=== PATIENT | female | born 1975 | race Caucasian/White ===

== ENCOUNTER → 2016-05-30 | Outpatient (CLI) | payer OTHER ==
--- NOTE | 2016-06-04 09:34 | MM ---
Reason for exam: screening (asymptomatic). History: Family history of breast cancer in maternal grandmother at age 60. Physical Findings: A clinical breast exam by your physician is recommended on an annual basis and results should be correlated with mammographic findings. MG Screening Mammo w CAD Bilateral CC and MLO view(s) were taken. Prior study comparison: March 05, 2011, mammogram, performed at [facility]. The breast tissue is heterogeneously dense. This may lower the sensitivity of mammography. No significant changes when compared with prior studies. ASSESSMENT: Benign, BI-RAD 2 RECOMMENDATION: Routine screening mammogram of both breasts in 1 year.
== END | disposition home or self-care (01) ==
LOC: RADMAMWWP 08:19
PROVIDERS: ATTEND Obstetrics & Gynecology
DX: Z12.31 Encounter for screening mammogram for malignant neoplasm of breast (principal); Z80.3 Family history of malignant neoplasm of breast

== ENCOUNTER → 2017-05-22 | Outpatient (CLI) | payer BC ==
--- NOTE | 2017-05-23 10:17 | NM ---
EXAMINATION TYPE: NM thyroid image w uptake DATE OF EXAM: 05/23/2017 COMPARISON: NONE HISTORY: Thyrotoxicosis TECHNIQUE: Thyroid iodine uptake is calculated and images performed after the oral administration of 300 uCi I-123 uCi 1-123 Capsule. FINDINGS: There is normal distribution of activity throughout the gland. The 4 hour iodine uptake is calculated at 76% (normal range 8-14%). The 24-hour iodine uptake is calculated at 84% (normal range 15-35%). IMPRESSION: Correlate for hyperthyroidism.
== END | disposition home or self-care (01) ==
LOC: RADNMMAIN 08:42
PROVIDERS: ATTEND Internal Medicine Endocrinology, Diabetes & Metabolism
DX: E05.00 Thyrotoxicosis with diffuse goiter without thyrotoxic crisis or storm (principal)
CPT/HCPCS: 78014; A9516

== ENCOUNTER → 2017-12-19 | Outpatient (CLI) | payer BC ==
--- NOTE | 2017-12-20 12:21 | MM ---
Reason for exam: screening (asymptomatic). Last mammogram was performed 1 year and 7 months ago. History: Family history of breast cancer in maternal grandmother at age 60. Physical Findings: A clinical breast exam by your physician is recommended on an annual basis and results should be correlated with mammographic findings. MG 3D Screening Mammo W/Cad Bilateral CC and MLO view(s) were taken. Prior study comparison: May 30, 2016, bilateral MG screening mammo w CAD. March 05, 2011, mammogram, performed at [facility]. The breast tissue is heterogeneously dense. This may lower the sensitivity of mammography. No suspicious abnormality. No significant changes when compared with prior studies. ASSESSMENT: Negative, BI-RAD 1 RECOMMENDATION: Routine screening mammogram of both breasts in 1 year.
== END ==
LOC: RADMAMWWP 14:46
PROVIDERS: ATTEND Obstetrics & Gynecology
DX: Z12.31 Encounter for screening mammogram for malignant neoplasm of breast (principal); Z80.3 Family history of malignant neoplasm of breast
CPT/HCPCS: 77063; 77067

== ENCOUNTER → 2018-11-14 | Outpatient (CLI) | payer BC ==
[2018-11-14 19:18] LABS: T4, Free (Free Thyroxine) 1.4 ng/dL (0.80-1.80)
[2018-11-14 20:28] LABS: African American GFR (CKD) 162.5 (60.0-200.0); Albumin 4.3 g/dL (3.80-4.90); Albumin/Globulin Ratio 2.05 (1.60-3.17); Anion Gap 10.3 mmol/L (4.00-12.00); Calcium 9.3 mg/dL (8.7-10.3); Carbon Dioxide 28.7 mmol/L (21.6-31.8); Globulin 2.1 g/dL (1.6-3.3); Potassium 3.8 mmol/L (3.5-5.5); Total Bilirubin 0.3 mg/dL (0.2-1.2); Total Protein 6.4 g/dL (6.2-8.2)
== END | disposition home or self-care (01) ==
LOC: LABWHC1 13:43
PROVIDERS: ATTEND Nurse Practitioner Adult Health
DX: E03.9 Hypothyroidism, unspecified (principal); R74.8 Abnormal levels of other serum enzymes
CPT/HCPCS: 36415; 80053; 82140; 84439; 84443; 84481

== ENCOUNTER 2019-10-11 12:04 | Emergency (ER) | payer BC ==
[2019-10-11 12:13] VITALS: TEMP 97.8
[2019-10-11] MEDS ORDERED: methylPREDNISolone SOD SUCCI 125 MG/2 ML VIAL IV STA (12:25)
[2019-10-11] MEDS ORDERED: IPRATROPIUM-ALBUTEROL 3 ML NEB INHALATION STA (12:25)
[2019-10-11] MEDS ORDERED: SODIUM CHLORIDE 0.9% 500 ML 500 ML IV STA ×2 (12:25→13:01)
--- NOTE | 2019-10-11 12:42 | ED ---
SOB HPI - General Chief Complaint: Shortness of Breath Stated Complaint: poss pneumonia Time Seen by Provider: 10/11/19 12:15 Source: patient Mode of arrival: ambulatory Limitations: no limitations - History of Present Illness Initial Comments: Patient is a 44-year-old female, history of muscular dystrophy, presenting to the emergency Department with complaints of shortness of breath and a cough for the past week. Patient states she did see Dr. Lamar 3 days ago and was treated for bronchitis with prednisone as well as Levaquin. Patient states she started the medications 2 days ago and feels no improvement. she believes she may have pneumonia and wanted to be seen in the ER. She did have a normal chest x-ray 3 days ago.Patient states she is short of breath with just cutting up apples. She states she is having a thick cough as well, and having some nausea, low appetite. She denies any vomiting, abdominal pain. She states she did have fevers for the first 2 days of her symptoms and was tested for Covid however that was negative. Patient has not had any fever since. She states she does use BiPAP at night time and states she has been using occasionally during the day just for improvement of shortness of breath. She denies any chest pains. She denies history of blood clots. She has no further complaints at this time. Upon arrival to the ER, patient is tachycardia at 116, rest of vitals are normal. - Related Data Home Medications Medication Instructions Recorded Confirmed Lisinopril [Prinivil] 5 mg PO HS 11/02/14 10/12/15 Albuterol Inhaler [Ventolin Hfa 1 puff INHALATION RT-QID PRN 10/11/19 10/11/19 Inhaler] Albuterol Nebulized [Ventolin 2.5 mg INHALATION TID PRN 10/11/19 10/11/19 Nebulized] Escitalopram [Lexapro] 20 mg PO HS 10/11/19 10/11/19 Fluticasone Nasal [place] [Flonase 1 spray EA NOSTRIL DAILY 10/11/19 10/11/19 Nasal [place]] Levothyroxine Sodium 100 mcg PO DAILY 10/11/19 10/11/19 Varenicline [Chantix Continuing 1 mg PO BID 10/11/19 10/11/19 Pack] levoFLOXacin 500 mg PO DAILY 10/11/19 10/11/19 predniSONE See Taper PO DAILY 10/11/19 10/11/19 Previous Rx's Medication Instructions Recorded Ipratropium Nebulized [Atrovent 0.5 mg INHALATION Q6HR PRN #10 neb 10/11/19 Nebulized 0.2 MG/ML] Allergies Allergy/AdvReac Type Severity Reaction Status Date / Time butorphanol tartrate Allergy Unknown Verified 10/11/19 13:56 [From Stadol] hydrocodone Allergy Anaphylaxis Verified 10/11/19 13:56 Penicillins Allergy Unknown Verified 10/11/19 13:56 Childhood Sulfa (Sulfonamide Allergy Rash/Hives Verified 10/11/19 13:56 Antibiotics) Review of Systems ROS Statement: Those systems with pertinent positive or pertinent negative responses have been documented in the HPI. ROS Other: All systems not noted in ROS Statement are negative. Past Medical History Past Medical History: Hyperlipidemia, Hypertension, Liver Disease, Musculoskeletal Disorder, Thyroid Disorder Additional Past Medical History / Comment(s): LIMBGIRDLE MUSCULAR DYSTROPHY (PT IS ABLE TO WALK, BUT IF SHE FALLS OR LAYS FLAT SHE WILL NEED ASSISTANCE GETTING UP). LIVER ENYMES ARE ELEVATED.. migraines, hashimotos, History of Any Multi-Drug Resistant Organisms: None Reported Past Surgical History: Cholecystectomy, Uterine Ablation Additional Past Surgical History / Comment(s): surgery for UPJ obstruction Past Anesthesia/Blood Transfusion Reactions: Motion Sickness, Postoperative Nausea & Vomiting (PONV) Past Psychological History: Anxiety, Depression Smoking Status: Former smoker Past Alcohol Use History: None Reported Past Drug Use History: None Reported - Past Family History Father Family Medical History: No Reported History Mother Family Medical History: CVA/TIA General Exam - General Exam Comments Initial Comments: GENERAL: Patient is well-developed and well-nourished. Patient is nontoxic and in no acute distress. HEAD: Atraumatic, normocephalic. EYES: Pupils equal round and reactive to light, extraocular movements intact, sclera anicteric, conjunctiva are normal. Eyelids were unremarkable. ENT: TMs normal, nares patent, oropharynx clear without exudates. Moist mucous membranes. NECK: Normal range of motion, supple without lymphadenopathy or JVD. LUNGS: Unlabored respirations. scattered wheezes throughout, no rhonchi or rales. HEART: tachycardia rate and rhythm without murmurs, rubs or gallops. ABDOMEN: Soft, nontender, normoactive bowel sounds. No guarding, no rebound. No masses appreciated. : Deferred MUSCULOSKELETAL: extremities had decreased strength secondary to muscular dystrophy. No pain with palpation. No pitting or edema. No clubbing or cyanosis. NEUROLOGICAL: Patient is alert and oriented x 3. Motor and sensory are also intact. Cranial nerves II through XII grossly intact. Symmetrical smile. Normal speech. PSYCH: Normal mood, normal affect. SKIN: Warm, Dry, normal turgor, no rashes or lesions noted. Limitations: no limitations Course Vital Signs 10/11/19 10/11/19 10/11/19 12:09 12:57 13:10 Temperature 97.8 F Pulse Rate 116 H 108 H 103 H Respiratory 24 Rate Blood Pressure 126/89 O2 Sat by Pulse 99 Oximetry Medical Decision Making - Medical Decision Making patient is a 44-year-old female, with history of muscle dystrophy, presenting with shortness of breath is increasing over the past week. She did see Dr. Lamar and was treated for bronchitis with Levaquin and prednisone which she started 2 days ago. Patient was tachycardia upon arrival, rest of vital signs are normal. She does have some scattered wheezes on exam. wheezes did improve after breathing treatment. Chest x-ray looks similar to previous one, no signs of acute process. Laboratory shows a mild leukocytosis, most likely related to current steroid prescription, patient did have a lactic acid of 3.2. I do give patient 1 L fluids as well as a dose of [place] drawl. She does report improvement in her symptoms. Her vital signs remained stable. Patient is stable for discharge. I recommended continuing with oral steroids as well as Levaquin as prescribed. I will give patient a few viles of ipratropium bromide to add to her albuterol treatment. I also recommend following up with Dr. Rasmussen symptoms not improve within 3 days. Patient is agreement this plan of care. She will also continue with either down some or Mucinex for cough and congestion. Return parameters were discussed with the patient and she verbalized understanding. Ca se discussed with Dr. Denis. - Lab Data Result diagrams: 10/11/19 12:40 10/11/19 12:40 Lab Results 10/11/19 10/11/19 10/11/19 Range/Units 12:40 12:40 12:40 WBC 12.6 H (3.8-10.6) k/uL RBC 5.00 (3.80-5.40) m/uL Hgb 14.5 (11.4-16.0) gm/dL Hct 44.8 (34.0-46.0) % MCV 89.5 (80.0-100.0) fL MCH 29.0 (25.0-35.0) pg MCHC 32.4 (31.0-37.0) g/dL RDW 13.2 (11.5-15.5) % Plt Count 360 (150-450) k/uL Neutrophils % 69 % Lymphocytes % 22 % Monocytes % 5 % Eosinophils % 3 % Basophils % 1 % Neutrophils # 8.7 H (1.3-7.7) k/uL Lymphocytes # 2.8 (1.0-4.8) k/uL Monocytes # 0.6 (0-1.0) k/uL Eosinophils # 0.3 (0-0.7) k/uL Basophils # 0.1 (0-0.2) k/uL PT 9.5 (9.0-12.0) sec INR 0.9 (<1.2) APTT 23.4 (22.0-30.0) sec D-Dimer 0.24 (<0.60) mg/L FEU Sodium 137 (137-145) mmol/L Potassium 3.3 L (3.5-5.1) mmol/L Chloride 101 (98-107) mmol/L Carbon Dioxide 25 (22-30) mmol/L Anion Gap 11 mmol/L BUN 12 (7-17) mg/dL Creatinine 0.22 L (0.52-1.04) mg/dL Est GFR (CKD-EPI)AfAm >90 (>60 ml/min/1.73 sqM) Est GFR (CKD-EPI)NonAf >90 (>60 ml/min/1.73 sqM) Glucose 150 H (74-99) mg/dL Plasma Lactic Acid Alfonzo (0.7-2.0) mmol/L Calcium 9.0 (8.4-10.2) mg/dL Total Bilirubin 0.4 (0.2-1.3) mg/dL AST 74 H (14-36) U/L ALT 76 H (4-34) U/L Alkaline Phosphatase 84 (38-126) U/L Total Protein 6.8 (6.3-8.2) g/dL Albumin 4.1 (3.5-5.0) g/dL 10/11/19 Range/Units 12:40 WBC (3.8-10.6) k/uL RBC (3.80-5.40) m/uL Hgb (11.4-16.0) gm/dL Hct (34.0-46.0) % MCV (80.0-100.0) fL MCH (25.0-35.0) pg MCHC (31.0-37.0) g/dL RDW (11.5-15.5) % Plt Count (150-450) k/uL Neutrophils % % Lymphocytes % % Monocytes % % Eosinophils % % Basophils % % Neutrophils # (1.3-7.7) k/uL Lymphocytes # (1.0-4.8) k/uL Monocytes # (0-1.0) k/uL Eosinophils # (0-0.7) k/uL Basophils # (0-0.2) k/uL PT (9.0-12.0) sec INR (<1.2) APTT (22.0-30.0) sec D-Dimer (<0.60) mg/L FEU Sodium (137-145) mmol/L Potassium (3.5-5.1) mmol/L Chloride (98-107) mmol/L Carbon Dioxide (22-30) mmol/L Anion Gap mmol/L BUN (7-17) mg/dL Creatinine (0.52-1.04) mg/dL Est GFR (CKD-EPI)AfAm (>60 ml/min/1.73 sqM) Est GFR (CKD-EPI)NonAf (>60 ml/min/1.73 sqM) Glucose (74-99) mg/dL Plasma Lactic Acid Alfonzo 3.2 H* (0.7-2.0) mmol/L Calcium (8.4-10.2) mg/dL Total Bilirubin (0.2-1.3) mg/dL AST (14-36) U/L ALT (4-34) U/L Alkaline Phosphatase (38-126) U/L Total Protein (6.3-8.2) g/dL Albumin (3.5-5.0) g/dL Disposition Clinical Impression: Cough, Dyspnea, Bronchitis Disposition: HOME SELF-CARE Condition: Stable Instructions (If sedation given, give patient instructions): Acute Bronchitis (ED) Additional Instructions: Please return to the Emergency Department if symptoms worsen or any other concerns. Continue with already prescribed oral steroids as well as antibiotics. May add and [place] or Mucinex for cough and congestion. May also add bromide 2-year-old albuterol for breathing treatments to use as needed for wheezing and shortness of breath. Follow-up with Dr. Lamar if symptoms persist after 3-4 days. Continue to drink lots of water. Prescriptions: Ipratropium Nebulized [Atrovent Nebulized 0.2 MG/ML] 0.5 mg INHALATION Q6HR PRN #10 neb PRN Reason: Dyspnea Is patient prescribed a controlled substance at d/c from ED?: No Referrals: Ray Jaquez MD [Primary Care Provider] - 1-2 days
[2019-10-11 12:50] LABS: Basophils # (A) 0.1 k/uL (0-0.2); Basophils % (A) 1 %; Eosinophils # (A) 0.3 k/uL (0-0.7); Eosinophils % (A) 3 %; HCT 44.8 % (34.0-46.0); HGB 14.5 gm/dL (11.4-16.0); Lymphocytes # (A) 2.8 k/uL (1.0-4.8); Lymphocytes % (A) 22 %; MCHC 32.4 g/dL (31.0-37.0); MCV 89.5 fL (80.0-100.0); Mean Platelet Volume 6.8; Monocytes # (A) 0.6 k/uL (0-1.0); Monocytes % (A) 5 %; Neutrophils # (A) 8.7 k/uL (1.3-7.7); Neutrophils % (A) 69 %; Platelet Count 360 k/uL (150-450); RDW 13.2 % (11.5-15.5); WBC 12.6 k/uL (3.8-10.6)
[2019-10-11 12:59] LABS: ALT 76 U/L (4-34); AST 74 U/L (14-36); African American GFR (CKD) >90 (>60 ml/min/1.73 sqM); Albumin 4.1 g/dL (3.5-5.0); Alkaline Phosphatase 84 U/L (38-126); Anion Gap 11 mmol/L; Blood Urea Nitrogen 12 mg/dL (7-17); Carbon Dioxide 25 mmol/L (22-30); Chloride 101 mmol/L (98-107); Glucose 150 mg/dL (74-99); Non-African American GFR(CKD) >90 (>60 ml/min/1.73 sqM); Potassium 3.3 mmol/L (3.5-5.1); Sodium 137 mmol/L (137-145); Total Bilirubin 0.4 mg/dL (0.2-1.3); Total Protein 6.8 g/dL (6.3-8.2)
[2019-10-11 13:04] LABS: D-Dimer 0.24 mg/L FEU (<0.60); INR 0.9 (<1.2); Partial Thromboplastin Time 23.4 sec (22.0-30.0); Prothrombin Time 9.5 sec (9.0-12.0)
--- NOTE | 2019-10-11 13:35 | XR ---
EXAMINATION TYPE: XR chest 2V DATE OF EXAM: 10/11/2019 COMPARISON: Chest x-ray October 08, 2019. HISTORY: Difficulty in breathing. TECHNIQUE: Frontal and lateral views of the chest are obtained. FINDINGS: Low lung volumes are redemonstrated. There is no focal air space opacity, pleural effusion , or pneumothorax seen. The cardiac silhouette size is stable and within normal limits. The osseou s structures are intact. IMPRESSION: Low lung volumes without new suspicious acute pulmonary process.
[2019-10-11 14:17] VITALS: BP 129/92; PULSE 94; RESP 18
== END 2019-10-11 14:25 | disposition home or self-care (01) ==
LOC: EC 12:04
DX: J40 Bronchitis, not specified as acute or chronic (principal); I10 Essential (primary) hypertension; R00.0 Tachycardia, unspecified; D72.829 Elevated white blood cell count, unspecified; F41.9 Anxiety disorder, unspecified; E06.3 Autoimmune thyroiditis; F32.9 Major depressive disorder, single episode, unspecified; Z79.51 Long term (current) use of inhaled steroids; Z79.890 Hormone replacement therapy; Z79.899 Other long term (current) drug therapy; Z88.0 Allergy status to penicillin; Z88.2 Allergy status to sulfonamides; Z88.5 Allergy status to narcotic agent; Z87.891 Personal history of nicotine dependence
CPT/HCPCS: 36415; 94640; 85379; 80053; 83605; 85025; 85610; 85730; 87040; 71046; 99285; 96374; 96361; J2930

== ENCOUNTER 2019-10-13 13:18 | Emergency (ER) | payer BC ==
[2019-10-13] MEDS ORDERED: IPRATROPIUM-ALBUTEROL 3 ML NEB INHALATION STA (13:49)
[2019-10-13] MEDS ORDERED: SODIUM CHLORIDE 0.9% 1,000 ML IV STA ×2 (13:49)
--- NOTE | 2019-10-13 13:55 | ED ---
URI HPI - General Chief Complaint: Upper Respiratory Infection Stated Complaint: Chest Pain Time Seen by Provider: 10/13/19 13:36 Source: patient, RN notes reviewed, old records reviewed Mode of arrival: wheelchair Limitations: no limitations - History of Present Illness Initial Comments: Patient is a 44-year-old female who presents emergency department today after being treated for bronchitis with prednisone and Levaquin from Dr. Lamar's office. Patient states that today she complained of some chest pressure and cough making it worse. She states she is a she's been feeling SOMEWHAT dizzy. She states it feels that her heart will race from time to time. Patient states that she's had no recorded fevers or chills. She was tested for Covid a pproximately 10 days ago and at that time it was negative. - Related Data Home Medications Medication Instructions Recorded Confirmed Lisinopril [Prinivil] 10 mg PO HS 11/02/14 10/11/19 Albuterol Inhaler [Ventolin Hfa 1 puff INHALATION RT-QID PRN 10/11/19 10/11/19 Inhaler] Albuterol Nebulized [Ventolin 2.5 mg INHALATION TID PRN 10/11/19 10/11/19 Nebulized] Escitalopram [Lexapro] 20 mg PO HS 10/11/19 10/11/19 Fluticasone Nasal [place] [Flonase 1 spray EA NOSTRIL DAILY 10/11/19 10/11/19 Nasal [place]] Levothyroxine Sodium 100 mcg PO DAILY 10/11/19 10/11/19 Varenicline [Chantix Continuing 1 mg PO BID 10/11/19 10/11/19 Pack] levoFLOXacin 500 mg PO DAILY 10/11/19 10/11/19 predniSONE See Taper PO DAILY 10/11/19 10/11/19 Previous Rx's Medication Instructions Recorded Ipratropium Nebulized [Atrovent 0.5 mg INHALATION Q6HR PRN #10 neb 10/11/19 Nebulized 0.2 MG/ML] Allergies Allergy/AdvReac Type Severity Reaction Status Date / Time butorphanol tartrate Allergy Unknown Verified 10/11/19 13:56 [From Stadol] hydrocodone Allergy Anaphylaxis Verified 10/11/19 13:56 Penicillins Allergy Unknown Verified 10/11/19 13:56 Childhood Sulfa (Sulfonamide Allergy Rash/Hives Verified 10/11/19 13:56 Antibiotics) Review of Systems ROS Statement: Those systems with pertinent positive or pertinent negative responses have been documented in the HPI. ROS Other: All systems not noted in ROS Statement are negative. Past Medical History Past Medical History: Hyperlipidemia, Hypertension, Liver Disease, Musculoskeletal Disorder, Thyroid Disorder Additional Past Medical History / Comment(s): LIMBGIRDLE MUSCULAR DYSTROPHY (PT IS ABLE TO WALK, BUT IF SHE FALLS OR LAYS FLAT SHE WILL NEED ASSISTANCE GETTING UP). LIVER ENYMES ARE ELEVATED.. migraines, hashimotos, History of Any Multi-Drug Resistant Organisms: None Reported Past Surgical History: Cholecystectomy, Uterine Ablation Additional Past Surgical History / Comment(s): surgery for UPJ obstruction Past Anesthesia/Blood Transfusion Reactions: Motion Sickness, Postoperative Nausea & Vomiting (PONV) Past Psychological History: Anxiety, Depression Smoking Status: Former smoker Past Alcohol Use History: None Reported Past Drug Use History: None Reported - Past Family History Father Family Medical History: No Reported History Mother Family Medical History: CVA/TIA General Exam - General Exam Comments Initial Comments: 44-year-old female. Alert and oriented 3. No significant distress. Limitations: no limitations General appearance: alert, in no apparent distress Head exam: Present: atraumatic, normocephalic, normal inspection Eye exam: Present: normal appearance, PERRL, EOMI. Absent: scleral icterus, conjunctival injection, periorbital swelling ENT exam: Present: normal exam, mucous membranes moist Neck exam: Present: normal inspection. Absent: tenderness, meningismus, lymphadenopathy Respiratory exam: Present: normal lung sounds bilaterally. Absent: respiratory distress, wheezes, rales, rhonchi, stridor Cardiovascular Exam: Present: regular rate, normal rhythm, normal heart sounds. Absent: systolic murmur, diastolic murmur, rubs, gallop, clicks GI/Abdominal exam: Present: soft, normal bowel sounds. Absent: distended, tenderness, guarding, rebound, rigid Extremities exam: Present: normal inspection, full ROM, normal capillary refill. Absent: tenderness, pedal edema, joint swelling, calf tenderness Back exam: Present: normal inspection Neurological exam: Present: alert, oriented X3, CN II-XII intact Psychiatric exam: Present: normal affect, normal mood Course Vital Signs 10/13/19 10/13/19 10/13/19 13:19 14:17 14:27 Temperature 98.4 F Pulse Rate 79 84 91 Respiratory 18 Rate Blood Pressure 131/87 O2 Sat by Pulse 97 Oximetry 10/13/19 10/13/19 14:40 16:11 Temperature 97.9 F Pulse Rate 85 70 Respiratory 18 16 Rate Blood Pressure 128/83 107/67 O2 Sat by Pulse 97 96 Oximetry Medical Decision Making - Medical Decision Making 44 year old female, no distress. Patient has been treated for bronchitis with antibiotic and steroids. She is on a tapering dose of the steroid. Do believe patient's symptoms of heart racing and feeling off is probably related to steroid use. Her labs reviewed and unremarkable including a negative d-dimer. Chest x-ray is improving. She was feeling better after receiving DuoNeb treatment. Discussed at this time likely side effect from the steroids and advised following up with neurology and PCP. She appears clinically well. Patient is agreeable treatment plan will comply. - Lab Data Result diagrams: 10/13/19 13:53 10/13/19 13:53 Lab Results 10/13/19 10/13/19 10/13/19 Range/Units 13:53 13:53 13:53 WBC 13.4 H (3.8-10.6) k/uL RBC 4.85 (3.80-5.40) m/uL Hgb 14.0 (11.4-16.0) gm/dL Hct 43.8 (34.0-46.0) % MCV 90.4 (80.0-100.0) fL MCH 28.8 (25.0-35.0) pg MCHC 31.9 (31.0-37.0) g/dL RDW 13.3 (11.5-15.5) % Plt Count 358 (150-450) k/uL Neutrophils % 72 % Lymphocytes % 19 % Monocytes % 6 % Eosinophils % 1 % Basophils % 1 % Neutrophils # 9.6 H (1.3-7.7) k/uL Lymphocytes # 2.6 (1.0-4.8) k/uL Monocytes # 0.8 (0-1.0) k/uL Eosinophils # 0.1 (0-0.7) k/uL Basophils # 0.1 (0-0.2) k/uL PT 9.7 (9.0-12.0) sec INR 0.9 (<1.2) APTT 24.9 (22.0-30.0) sec D-Dimer 0.22 (<0.60) mg/L FEU Sodium 136 L (137-145) mmol/L Potassium 3.7 (3.5-5.1) mmol/L Chloride 97 L (98-107) mmol/L Carbon Dioxide 32 H (22-30) mmol/L Anion Gap 7 mmol/L BUN 12 (7-17) mg/dL Creatinine 0.27 L (0.52-1.04) mg/dL Est GFR (CKD-EPI)AfAm >90 (>60 ml/min/1.73 sqM) Est GFR (CKD-EPI)NonAf >90 (>60 ml/min/1.73 sqM) Glucose 96 (74-99) mg/dL Lactic Ac Sepsis Rflx Plasma Lactic Acid Alfonzo (0.7-2.0) mmol/L Calcium 8.7 (8.4-10.2) mg/dL Magnesium 1.9 (1.6-2.3) mg/dL Total Bilirubin 0.5 (0.2-1.3) mg/dL AST 52 H (14-36) U/L ALT 71 H (4-34) U/L Alkaline Phosphatase 67 (38-126) U/L Troponin I (0.000-0.034) ng/mL Total Protein 6.6 (6.3-8.2) g/dL Albumin 3.9 (3.5-5.0) g/dL 10/13/19 10/13/19 10/13/19 Range/Units 13:53 13:53 15:44 WBC (3.8-10.6) k/uL RBC (3.80-5.40) m/uL Hgb (11.4-16.0) gm/dL Hct (34.0-46.0) % MCV (80.0-100.0) fL MCH (25.0-35.0) pg MCHC (31.0-37.0) g/dL RDW (11.5-15.5) % Plt Count (150-450) k/uL Neutrophils % % Lymphocytes % % Monocytes % % Eosinophils % % Basophils % % Neutrophils # (1.3-7.7) k/uL Lymphocytes # (1.0-4.8) k/uL Monocytes # (0-1.0) k/uL Eosinophils # (0-0.7) k/uL Basophils # (0-0.2) k/uL PT (9.0-12.0) sec INR (<1.2) APTT (22.0-30.0) sec D-Dimer (<0.60) mg/L FEU Sodium (137-145) mmol/L Potassium (3.5-5.1) mmol/L Chloride (98-107) mmol/L Carbon Dioxide (22-30) mmol/L Anion Gap mmol/L BUN (7-17) mg/dL Creatinine (0.52-1.04) mg/dL Est GFR (CKD-EPI)AfAm (>60 ml/min/1.73 sqM) Est GFR (CKD-EPI)NonAf (>60 ml/min/1.73 sqM) Glucose (74-99) mg/dL Lactic Ac Sepsis Rflx Y Plasma Lactic Acid Alfonzo 2.7 H* (0.7-2.0) mmol/L Calcium (8.4-10.2) mg/dL Magnesium (1.6-2.3) mg/dL Total Bilirubin (0.2-1.3) mg/dL AST (14-36) U/L ALT (4-34) U/L Alkaline Phosphatase (38-126) U/L Troponin I <0.012 (0.000-0.034) ng/mL Total Protein (6.3-8.2) g/dL Albumin (3.5-5.0) g/dL 10/13/19 13:55 EKG performed at 1341 shows normal sinus rhythm normal EKG. Ventricular rate 84 bpm. AK interval is 144 ms. QRS duration is 92 ms. QT QTc is 400/472 ms. - Radiology Data Radiology results: report reviewed Chest x-ray shows no pericardial vomiting process. Disposition Clinical Impression: Bronchitis Disposition: HOME SELF-CARE Condition: Good Instructions (If sedation given, give patient instructions): Upper Respiratory Infection (ED) Additional Instructions: Continue the steroids and antibiotics. Use inhalers and breathing treatment. Follow-up with your PCP. Return to ED if any alarming signs or symptoms occur. Is patient prescribed a controlled substance at d/c from ED?: No Referrals: Ray Jaquez MD [Primary Care Provider] - 1-2 days Time of Disposition: 15:58
--- NOTE | 2019-10-13 14:24 | XR ---
EXAMINATION TYPE: XR chest 2V DATE OF EXAM: 10/13/2019 CLINICAL HISTORY: Difficulty breathing. Chest pain, shortness of breath. Bronchitis. TECHNIQUE: Frontal and lateral views of the chest are obtained. COMPARISON: Chest radiograph 10/11/2019 FINDINGS: Low lung volumes. The cardiomediastinal silhouette is within normal limits for size. Pulmon rhina vasculature is normal. There is no focal air space opacity, pleural effusion, or pneumothorax see n. The osseous structures are intact. IMPRESSION: No acute cardiopulmonary process.
[2019-10-13 14:26] LABS: Basophils # (A) 0.1 k/uL (0-0.2); Basophils % (A) 1 %; Eosinophils # (A) 0.1 k/uL (0-0.7); Eosinophils % (A) 1 %; HCT 43.8 % (34.0-46.0); Lymphocytes # (A) 2.6 k/uL (1.0-4.8); Lymphocytes % (A) 19 %; MCH 28.8 pg (25.0-35.0); MCHC 31.9 g/dL (31.0-37.0); MCV 90.4 fL (80.0-100.0); Mean Platelet Volume 7.1; Monocytes # (A) 0.8 k/uL (0-1.0); Monocytes % (A) 6 %; Neutrophils # (A) 9.6 k/uL (1.3-7.7); Neutrophils % (A) 72 %; Platelet Count 358 k/uL (150-450); RBC 4.85 m/uL (3.80-5.40); RDW 13.3 % (11.5-15.5); WBC 13.4 k/uL (3.8-10.6)
[2019-10-13 14:34] LABS: ALT 71 U/L (4-34); AST 52 U/L (14-36); African American GFR (CKD) >90 (>60 ml/min/1.73 sqM); Albumin 3.9 g/dL (3.5-5.0); Alkaline Phosphatase 67 U/L (38-126); Anion Gap 7 mmol/L; Blood Urea Nitrogen 12 mg/dL (7-17); Calcium 8.7 mg/dL (8.4-10.2); Carbon Dioxide 32 mmol/L (22-30); Chloride 97 mmol/L (98-107); Glucose 96 mg/dL (74-99); Magnesium 1.9 mg/dL (1.6-2.3); Non-African American GFR(CKD) >90 (>60 ml/min/1.73 sqM); Potassium 3.7 mmol/L (3.5-5.1); Sodium 136 mmol/L (137-145); Total Bilirubin 0.5 mg/dL (0.2-1.3); Total Protein 6.6 g/dL (6.3-8.2)
[2019-10-13 14:40] LABS: D-Dimer 0.22 mg/L FEU (<0.60); INR 0.9 (<1.2); Partial Thromboplastin Time 24.9 sec (22.0-30.0); Prothrombin Time 9.7 sec (9.0-12.0)
[2019-10-13 16:12] VITALS: BP 107/67; PULSE 70; RESP 16; TEMP 97.9
== END 2019-10-13 16:16 | disposition home or self-care (01) ==
LOC: EC 13:18
DX: J40 Bronchitis, not specified as acute or chronic (principal); I10 Essential (primary) hypertension; E07.9 Disorder of thyroid, unspecified; F41.9 Anxiety disorder, unspecified; F32.9 Major depressive disorder, single episode, unspecified; Z79.899 Other long term (current) drug therapy; Z79.51 Long term (current) use of inhaled steroids; Z88.0 Allergy status to penicillin; Z88.2 Allergy status to sulfonamides; Z88.5 Allergy status to narcotic agent; Z88.8 Allergy status to other drugs, medicaments and biological substances; Z87.891 Personal history of nicotine dependence
CPT/HCPCS: 36415; 71046; 80053; 83605; 83735; 84484; 85025; 85379; 85610; 85730; 87040; 93005; 94640; 96360; 96361; 99284

== ENCOUNTER → 2019-11-03 | Day surgery (SDC) | payer BC ==
[2019-10-30 10:03] VITALS: BMI 38.5
[~2019-11-03] MED LIST: LACTATED RINGERS 1,000 ML IV SCH; PROPOFOL 10 MG/ML 20 ML VIAL IV ONE
[2019-11-03 10:23] VITALS: TEMP 97.3
[2019-11-03 10:29] LABS: Glucose,Whole Blood 87 mg/dL (75-99)
[2019-11-03 11:13] VITALS: RESP 18
--- NOTE | 2019-11-03 11:16 | P.PCN ---
Date of Procedure: 11/03/19 Description of Procedure: BRIEF HISTORY: Patient is a 44-year-old male for outpatient colonoscopy for screening for malignant neoplasm colon. She reports multiple colonoscopies in the past with polypectomy in the past. He reports multiple polyps and family members. PROCEDURE PERFORMED: Colonoscopy. PREOPERATIVE DIAGNOSIS: Screening for malignant neoplasm colon, reports less colonoscopy 5 years. ESTIMATED BLOOD LOSS: Minimal. IV sedation per Anesthesia. PROCEDURE: After informed consent was obtained, the patient, was brought into the endoscopy unit. IV sedation was administered by Anesthesia under continuous monitoring. Digital rectal examination was normal. Initially the Olympus CF-190 flexible video colonoscope was then inserted in the rectum, gradually advanced into the cecum without any difficulty. Careful examination was performed as the scope was gradually being withdrawn. Ileocecal valve and the appendiceal orifice were visualized and appeared normal. Prep was excellent. Mucosa of the cecum, ascending colon, transverse colon, descending colon, sigmoid colon, and rectum appeared normal. Retroflexion was performed in the rectum and no lesions were seen, low-grade internal hemorrhoids. The patient tolerated the procedure well. IMPRESSION: Normal-appearing colon from rectum to cecum. RECOMMENDATIONS: Findings of this examination were discussed with the patient. Okay to resume diet. Okay to resume medications. Would recommend repeat colonoscopy for screening purposes. at 50.
[2019-11-03 11:33] VITALS: BP 128/81; PULSE 79
== END ==
LOC: ORWHC2ENDO 09:54
PROVIDERS: ATTEND Internal Medicine
DX: Z12.11 Encounter for screening for malignant neoplasm of colon (principal); Z86.010 Personal history of colon polyps; Z83.71 Family history of colonic polyps; G47.33 Obstructive sleep apnea (adult) (pediatric); E05.00 Thyrotoxicosis with diffuse goiter without thyrotoxic crisis or storm; G71.00 Muscular dystrophy, unspecified; K21.9 Gastro-esophageal reflux disease without esophagitis; K76.9 Liver disease, unspecified; Z87.891 Personal history of nicotine dependence; Z88.5 Allergy status to narcotic agent; Z88.0 Allergy status to penicillin; Z88.2 Allergy status to sulfonamides; Z79.899 Other long term (current) drug therapy; Z79.890 Hormone replacement therapy; Z90.49 Acquired absence of other specified parts of digestive tract; Z98.890 Other specified postprocedural states; Z99.89 Dependence on other enabling machines and devices; Z86.69 Personal history of other diseases of the nervous system and sense organs
CPT/HCPCS: 81025; J2704; G0105

== ENCOUNTER → 2020-06-23 | Outpatient (CLI) | payer BC ==
--- NOTE | 2020-06-27 09:50 | MM ---
Reason for exam: screening (asymptomatic). Last mammogram was performed 2 years and 6 months ago. History: Family history of breast cancer in maternal grandmother at age 60. Physical Findings: A clinical breast exam by your physician is recommended on an annual basis and results should be correlated with mammographic findings. MG 3D Screening Mammo W/Cad Bilateral CC, MLO, and XCCL view(s) were taken. Prior study comparison: December 19, 2017, bilateral MG 3d screening mammo w/cad. May 30, 2016, bilateral MG screening mammo w CAD. The breast tissue is heterogeneously dense. This may lower the sensitivity of mammography. No significant changes when compared with prior studies. ASSESSMENT: Benign, BI-RAD 2 RECOMMENDATION: Routine screening mammogram of both breasts in 1 year.
== END | disposition home or self-care (01) ==
LOC: RADMAMWWP 11:02
PROVIDERS: ATTEND Family Medicine
DX: Z12.31 Encounter for screening mammogram for malignant neoplasm of breast (principal); Z80.3 Family history of malignant neoplasm of breast
CPT/HCPCS: 77063; 77067

== ENCOUNTER → 2022-02-21 | Outpatient (CLI) | payer BC ==
--- NOTE | 2022-02-21 21:20 | US ---
EXAMINATION TYPE: US thyroid st tissue head/neck DATE OF EXAM: 02/21/2022 COMPARISON: None CLINICAL HISTORY: 46-year-old female E07.9 DISORDER OF THYROID, UNSPECIFIED. Patient has had radiatio n 4 years ago. Hx of Graves disease. Patient on levothyroxine. TECHNIQUE: Multiple sonographic thyroid gland are obtained. FINDINGS: GLAND SIZE: Right Lobe: 3.3 x 1.0 x 1.0 cm Overall Parenchyma: heterogenous Left Lobe: 3.3 x 0.8 x 1.3 cm Overall Parenchyma: heterogeneous Isthmus Thickness: 0.20 cm NODULES RIGHT: # of nodules measured on right: 0 LEFT: # of nodules measured on left: 0 ISTHMUS: # of nodules measured in the isthmus: 0 Bilateral neck scanned, *Possible thickened, oval lymph node along the lateral right neck measuring 1.5 x 1.0 x 0.7 cm. *There is a chain of thickened lymph node lateral left neck, Largest measures: 1.3 x 1.5 x 1.2 cm. Se cond largest measures 1.4 x 1.3 x 0.6 cm. Largest two areas were measured within the left neck. IMPRESSION: 1. Small heterogeneous thyroid gland suggesting chronic hypothyroidism. 2. A chain of thickened and borderline sized lymph nodes along the left side of the neck measuring up to 1.3 cm short axis. Additional single thickened lymph node along the right lateral neck measuring borderline enlarged, up to 1.0 cm short axis. These may be reactive/post inflammatory. Palpable areas can be followed with physical exam. Otherwise, three-month follow-up ultrasound to ensure stability/ resolution. If progressive enlargement or suspicious clinical features develop, reimage sooner or con data capture clerk tissue sampling.
== END | disposition home or self-care (01) ==
LOC: RADUSWWP 15:39
PROVIDERS: ATTEND Family Medicine
DX: E07.9 Disorder of thyroid, unspecified (principal)
CPT/HCPCS: 76536

== ENCOUNTER → 2022-05-25 | Outpatient (CLI) | payer BC ==
--- NOTE | 2022-05-25 12:23 | US ---
EXAMINATION TYPE: US thyroid st tissue head/neck DATE OF EXAM: 05/25/2022 COMPARISON: 02/21/2022 CLINICAL HISTORY: R59.0 localized enlarged lymph nodes. Short term follow up TECHNIQUE: Grayscale and color Doppler ultrasound images of the bilateral neck at site of palpable ly mph nodes were obtained. FINDINGS: Right neck lymph node 1.1 x 0.6 x 0.8cm, previously measured 1.5 x 0.7 x 1.0 cm Left neck lymph node 1.2 x 0.5 x 0.8cm., Previously measured 1.3 x 1.2 x 1.5 cm. Left neck lymph node 0.7 x 0.6 x 0.4cm. Decrease in size of lymph nodes prior exam. IMPRESSION: Decreased size of lymph nodes from prior exams likely indicating reactive etiology.
== END | disposition home or self-care (01) ==
LOC: RADUSWWP 09:49
PROVIDERS: ATTEND Otolaryngology
DX: R59.0 Localized enlarged lymph nodes (principal)
CPT/HCPCS: 76536

== ENCOUNTER → 2022-09-24 | Outpatient (CLI) | payer BC ==
[2022-09-24 15:41] LABS: ALT 64 U/L (8-44); AST 46 U/L (13-35); Chol/HDL Ratio 5.29 Ratio; LDL Cholesterol,Calculated 119.2 mg/dL (0.0-131.0)
== END | disposition home or self-care (01) ==
LOC: LABWHC1 07:30
PROVIDERS: ATTEND Student in an Organized Health Care Education/Training Program
DX: E78.2 Mixed hyperlipidemia (principal)
CPT/HCPCS: 36415; 80061; 84450; 84460

== ENCOUNTER → 2022-09-24 | Outpatient (CLI) | payer BC ==
--- NOTE | 2022-09-24 08:50 | MM ---
Reason for Exam: Screening (asymptomatic). Last mammogram was performed 2 year(s) and 3 month(s) ago. Patient History: Menarche at age 12. First Full-Term at age 18. Hormonal Contraceptives for 6 years from age 18 until age 24. Maternal grandmother had breast cancer, age 60. Risk Values: Gabby 5 year model risk: 0.6%. NCI Lifetime model risk: 6.8%. Prior Study Comparison: 05/30/2016 Bilateral Screening Mammogram, [facility]. 12/19/2017 Bilateral Screening Mammogram, [facility]. 06/23/2020 Bilateral Screening Mammogram, [facility]. Tissue Density: The breast tissue is heterogeneously dense. This may lower the sensitivity of mammography. Findings: Analyzed By CAD. Left: There is a lesion 10.0 cm from the nipple measuring 20 x 15 mm in the lateral aspect on CC view and upper aspect on MLO. Right: There is no suspicious group of microcalcifications or new suspicious mass in either breast. Overall Assessment: Negative, BI-RAD 1 Management: Diagnostic Breast Ultrasound of the left breast. [facility] will attempt to contact patient to return for supplemental views and ultrasound if indicated. Patient should continue monthly self-breast exams. A clinical breast exam by your physician is recommended on an annual basis. This exam should not preclude additional follow-up of suspicious palpable abnormalities. Note on Gabby scores and lifetime risk: 1. A Gabby score greater than 3% is considered moderate risk. If this is the case, consider specialist referral to assess eligibility for a risk reducing agent. 2. If overall lifetime risk for the development of breast cancer is 20% or higher, the patient may qualify for future screening with alternating mammogram and breast MRI. Electronically signed and approved by: Aries Gama DO
== END | disposition home or self-care (01) ==
LOC: RADMAMWWP 07:06
PROVIDERS: ATTEND Family Medicine
DX: Z12.31 Encounter for screening mammogram for malignant neoplasm of breast (principal); Z80.3 Family history of malignant neoplasm of breast
CPT/HCPCS: 77063; 77067

== ENCOUNTER → 2022-09-26 | Outpatient (CLI) | payer BC ==
--- NOTE | 2022-09-26 13:47 | USB ---
Reason for Exam: Additional evaluation requested from abnormal screening. Patient History: Menarche at age 12. First Full-Term at age 18. Hormonal Contraceptives for 6 years from age 18 until age 24. Maternal grandmother had breast cancer, age 60. Risk Values: Gabby 5 year model risk: 0.6%. NCI Lifetime model risk: 6.8%. Technique: Method: Targeted. Prior Study Comparison: 12/19/2017 Bilateral Screening Mammogram, [facility]. 06/23/2020 Bilateral Screening Mammogram, [facility]. 09/24/2022 Bilateral MG 3D screening mammo w/cad, [facility]. Findings: The upper outer quadrant of the left breast, the axilla of the left breast and the retroareolar of the left breast were scanned. 2 adjacent simple cysts are noted in the left breast at the 3:00 position 10 cm from the nipple. The largest cyst measures 1.2 x 0.9 cm and the smaller cyst 0.8 x 0.5 cm. No solid masses are seen within the [id number].. Overall Assessment: Benign, BI-RAD 2 Management: Screening Mammogram of both breasts in 1 year. A clinical breast exam by your physician is recommended on an annual basis and results should be correlated with mammographic findings. This exam should not preclude additional follow-up of suspicious palpable abnormalities. Results were given to the patient verbally at the time of exam. Electronically signed and approved by: Devendra Chan M.D. Radiologis
== END | disposition home or self-care (01) ==
LOC: RADUSWWP 12:55
PROVIDERS: ATTEND Family Medicine
DX: R92.8 Other abnormal and inconclusive findings on diagnostic imaging of breast (principal); Z80.3 Family history of malignant neoplasm of breast

== ENCOUNTER → 2023-01-01 | Outpatient (CLI) | payer BC ==
--- NOTE | 2023-01-01 11:10 | US ---
EXAMINATION TYPE: US kidneys/renal and bladder DATE OF EXAM: 01/01/2023 COMPARISON: Ultrasound renal 08/25/2014 CLINICAL INDICATION: Female, 47 years old with history of N30.20 CYSTITIS WITHOUT HEMATURIA; patient has history of obstruction on the right years ago, always feels like she has to urinate after voiding , patient could not hold bladder for test, voided just prior to bringing her back, h/o renal stones y ears ago and cyst EXAM MEASUREMENTS: Right Kidney: 13.4 x 5.9 x 4.5 cm Left Kidney: 13.2 x 5.6 x 6.5 cm Post Void Residual Volume: 96 mL Right Kidney: renal pelvis fullness Left Kidney: 1.7 x 1.4 x 1.3cm hypoechoic area noted at inferior pole Bladder: wnl Bilateral Jets seen: Yes Normal Post Void Residual: no There is no evidence for hydronephrosis at this point in time. No nephrolithiasis is seen. No right renal mass. Left inferior pole 1.7 cm stable thin-walled cyst. Corticomedullary differentiation is ma intained bilaterally. The urinary bladder is anechoic. Bilateral ureteral jets are seen. Abnormal po st void residual. IMPRESSION: 1. No hydronephrosis or nephrolithiasis. 2. Abnormal post void residual. 3. Stable left inferior pole cyst.
== END | disposition home or self-care (01) ==
LOC: RADUSWWP 09:40
PROVIDERS: ATTEND Family Medicine
DX: N30.20 Other chronic cystitis without hematuria (principal); N28.1 Cyst of kidney, acquired
CPT/HCPCS: 76770

== ENCOUNTER 2023-09-28 23:09 | Observation (INO) | payer BC ==
--- NOTE | 2023-10-26 08:00 | XR ---
EXAMINATION TYPE: XR chest 2V DATE OF EXAM: 10/26/2023 6:39 AM CLINICAL INDICATION: Female, 48 years old with history of SOB; [facility] COMPARISON: Chest radiographs from 10/13/2019 TECHNIQUE: XR chest 2V Frontal view of the chest. FINDINGS: Lungs/Pleura: Low lung volumes are present. There is no evidence of pleural effusion, focal consolida tion, or pneumothorax. Pulmonary vascularity: Unremarkable. Heart/mediastinum: Cardiomediastinal silhouette is unremarkable. Musculoskeletal: No acute osseous pathology. IMPRESSION: Low lung volumes with a generalized hazy appearance which could represent atelectasis versus pulmonar y edema correlate with serum BNP.
== END 2023-09-30 08:16 | disposition home or self-care (01) ==
LOC: 6NMEDSUR 23:09 → INTOOBSV 23:09 → UNDODISIN 09-30 08:16
PROVIDERS: ADMIT Internal Medicine; ATTEND Internal Medicine
DX: U07.1 COVID-19 (principal); J12.82 Pneumonia due to coronavirus disease 2019; G71.00 Muscular dystrophy, unspecified; G47.33 Obstructive sleep apnea (adult) (pediatric); I10 Essential (primary) hypertension; R00.0 Tachycardia, unspecified; E11.9 Type 2 diabetes mellitus without complications; M10.9 Gout, unspecified
CPT/HCPCS: 96374; 99285; 94640; 93005; 83036; 84145; 71046; G0379; G0378 ×3; J8540; J1100 ×2; J1650 ×2; J1885 ×2

== ENCOUNTER → 2024-05-20 | Outpatient (CLI) | payer BC ==
--- NOTE | 2024-05-20 12:17 | MM ---
Reason for Exam: Screening (asymptomatic). Last mammogram was performed 1 year(s) and 8 month(s) ago. Patient History: Menarche at age 12. First Full-Term at age 18. Hormonal Contraceptives for 6 years from age 18 until age 24. Maternal grandmother had breast cancer, age 60. Risk Values: Gabby 5 year model risk: 0.7%. NCI Lifetime model risk: 6.6%. Prior Study Comparison: 12/19/2017 Bilateral Screening Mammogram, [facility]. 06/23/2020 Bilateral Screening Mammogram, [facility]. 09/24/2022 Bilateral MG 3D screening mammo w/cad, [facility]. Tissue Density: The breasts are heterogeneously dense, which may obscure small masses. Findings: Analyzed By CAD. There is no suspicious group of microcalcifications or new suspicious mass in either breast. Overall Assessment: Benign, BI-RAD 2 Management: Screening Mammogram of both breasts in 1 year. . Patient should continue monthly self-breast exams. A clinical breast exam by your physician is recommended on an annual basis. This exam should not preclude additional follow-up of suspicious palpable abnormalities. Note on Gabby scores and lifetime risk: 1. A Gabby score greater than 3% is considered moderate risk. If this is the case, consider specialist referral to assess eligibility for a risk reducing agent. 2. If overall lifetime risk for the development of breast cancer is 20% or higher, the patient may qualify for future screening with alternating mammogram and breast MRI. [facility], , 05/20/2024 12:13 PM. Electronically signed and approved by: Devendra Chan M.D. Radiologis
== END | disposition home or self-care (01) ==
LOC: RADMAMWWP 09:34
PROVIDERS: ATTEND Family Medicine
DX: Z12.31 Encounter for screening mammogram for malignant neoplasm of breast (principal); R92.333 Mammographic heterogeneous density, bilateral breasts; Z80.3 Family history of malignant neoplasm of breast; Z92.0 Personal history of contraception
CPT/HCPCS: 77063; 77067

== ENCOUNTER → 2024-06-10 | Outpatient (CLI) | payer BC ==
[2024-06-10 15:58] LABS: Basophils # (A) 0.06 X 10*3/uL (0.00-0.10); Basophils % (A) 0.6 %; Eosinophils # (A) 0.27 X 10*3/uL (0.04-0.35); Eosinophils % (A) 2.7 %; HCT 45.9 % (37.2-46.3); HGB 14.8 g/dL (12.0-15.0); Lymphocytes # (A) 2.42 X 10*3/uL (0.90-5.00); Lymphocytes % (A) 24.2 %; MCH 30.6 pg (27.0-32.0); MCHC 32.2 g/dL (32.0-37.0); Mean Platelet Volume 10.4 FL (9.5-12.2); Monocytes # (A) 0.83 X 10*3/uL (0.20-1.00); Monocytes % (A) 8.3 %; NRBC Per 100 WBC 0 X 10*3/uL (0.00-0.01); Neutrophils # (A) 6.37 X 10*3/uL (1.80-7.70); Neutrophils % (A) 63.6 %; Platelet Count 339 X 10*3/uL (140-440); RBC 4.83 X 10*6/uL (4.10-5.20); RDW 13.2 % (11.5-14.5); WBC 10.01 X 10*3/uL (4.50-10.00)
[2024-06-10 17:04] LABS: ALT 103 U/L (8-44); AST 72 U/L (13-35); Albumin 4.1 g/dL (3.8-4.9); Albumin/Globulin Ratio 1.58 Ratio (1.60-3.17); Alkaline Phosphatase 76 U/L (41-126); Blood Urea Nitrogen 13.2 mg/dL (9.0-27.0); Carbon Dioxide 28.7 mmol/L (21.6-31.8); Chloride 98 mmol/L (96-109); Chol/HDL Ratio 4.68 Ratio; Globulin 2.6 g/dL (1.6-3.3); Glucose 87 mg/dL (70-110); LDL Cholesterol,Calculated 111.8 mg/dL (0.0-131.0); Potassium 4.2 mmol/L (3.5-5.5); Sodium 138 mmol/L (135-145); Total Bilirubin 0.5 mg/dL (0.3-1.2); Total Protein 6.7 g/dL (6.2-8.2)
== END | disposition home or self-care (01) ==
LOC: LABWHC1 10:29
PROVIDERS: ATTEND Family Medicine
DX: Z00.00 Encounter for general adult medical examination without abnormal findings (principal)
CPT/HCPCS: 36415; 80053; 80061; 83036; 84443; 85025